=== PATIENT | male | born 1955 | race Caucasian/White ===

== ENCOUNTER 2022-06-08 07:57 | Day surgery (SDC) | payer BC ==
[2022-06-03 15:22] VITALS: BMI 29.2
[2022-06-08] MEDS ORDERED: PROPOFOL 80 ML ONE (09:24)
[2022-06-08 10:18] VITALS: PULSE 56; TEMP 97.7
[2022-06-08 10:33] VITALS: BP 105/64; RESP 18
== END 2022-06-08 10:36 | disposition home or self-care (01) ==
LOC: FASU-ENDO 07:57
PROVIDERS: ATTEND Internal Medicine Gastroenterology
PROC: 0DBK8ZX Excision of Ascending Colon, Via Natural or Artificial Opening Endoscopic, Diagnostic (ICD-10-PCS; principal; 2022-06-08 09:20)
DX: Z12.11 Encounter for screening for malignant neoplasm of colon (principal); D12.2 Benign neoplasm of ascending colon
CPT/HCPCS: 88305-TC